=== PATIENT | male | born 2005 | race African-American/Black ===

== ENCOUNTER 2025-05-10 04:37 | Emergency (ER) | payer MEDICAID ==
[~2025-05-10] VITALS: Ht 167.6 cm; Wt 58.0 kg
[2025-05-10 04:41] VITALS: O2SAT 100
[2025-05-10 05:55] VITALS: BP 125/77; PULSE 73; RESP 16; TEMP 36.6; O2SAT 100
[2025-05-10] MEDS ORDERED: TOPUD PO (08:49)
== END 2025-05-10 05:58 | disposition home or self-care (01) ==
LOC: ER 04:37
DX: M25.512 Pain in left shoulder (principal)
CPT/HCPCS: 73030; 99283

== ENCOUNTER 2025-05-10 06:09 | Emergency (ER) | payer MEDICAID ==
[~2025-05-10] VITALS: Ht 167.6 cm; Wt 56.0 kg
[2025-05-10 06:15] VITALS: BP 124/81; PULSE 74; RESP 18; TEMP 36.4; O2SAT 98
[2025-05-10 08:14] LABS: BASOPHILS % 0.6 % (0.0-2.0); EOSINOPHILS % 0.6 % (0.0-5.0); HEMATOCRIT. 43.2 % (42.0-52.0); HEMOGLOBIN. 14.8 g/dL (14.0-18.0); LYMPHOCYTES % 14.8 % (20.0-50.0); MEAN PLATELET VOLUME 8.8 fl (7.4-10.4); MONOCYTES % 3.8 % (2.0-8.0); NEUTROPHILS % 80.2 % (40.0-76.0); PLATELET 166 x1000/uL (130-400); RED BLOOD CELL COUNT 4.71 mill/uL (4.7-6.1); RED CELL DISTRIBUTION WIDTH 12.0 % (11.6-14.6)
[2025-05-10 08:21] LABS: CREATININE 1.0 mg/dL (0.6-1.3); UREA NITROGEN BLOOD 10 mg/dL (9-23)
[2025-05-10] MEDS ORDERED: TOPUD PO (08:49)
== END 2025-05-10 09:14 | disposition home or self-care (01) ==
LOC: ER 06:09
DX: R53.1 Weakness (principal); R10.9 Unspecified abdominal pain
CPT/HCPCS: 36415; 80048; 85025; 99283

== ENCOUNTER 2025-05-13 22:19 | Emergency (ER) | payer MEDICAID ==
[~2025-05-13] VITALS: Ht 167.6 cm; Wt 54.0 kg
[~2025-05-13 22:19] MED LIST: TOPUD PO
[2025-05-13 22:31] VITALS: BP 118/75; PULSE 67; RESP 18; TEMP 98.4; O2SAT 100
[2025-05-14] MEDS ORDERED: IBUP-1455 MT (00:40)
[2025-05-14] MEDS ORDERED: LIDO-53 TP (00:42)
== END 2025-05-14 01:25 | disposition left against medical advice (07) ==
LOC: ER 22:19
DX: M54.50 Low back pain, unspecified (principal); M25.522 Pain in left elbow
CPT/HCPCS: 99281; 99283